=== PATIENT | male | born 1960 | race African-American/Black ===

== ENCOUNTER → 2021-08-06 | Day surgery (SDC) | payer MEDICARE ==
[~2021-08-06] VITALS: Ht 182.9 cm; Wt 84.0 kg
[~2021-08-06] MED LIST: AMLO-186 PO; IV RINGERS,LACTATED 1000ML 1,000 ML IV SCH; LIDOCAINE 2% PF 5 ML VIAL. ONE; LISI20TA18 PO; PROPOFOL 10 MG/ML (20ML) VIAL. IV ONE
[2021-08-06 13:01] VITALS: BP 143/91
--- NOTE | 2021-08-06 14:25 | PDOC4 ---
PROCEDURE Procedure Colonoscopy Indication: H/o polyps, Last 2017. Meds: per anesthesia Findings" GENNY: normal --'Scope advanced to cecum. Mucosa normal. Prep good. No tics, polyps, etc. Normal retroflex. Sid. well. IMP: H/o polyps, no recurrence. REC: Repeat exam in 5 years. F/u prn otherwise. Resume meds, diet. YANI HOBSON MD Aug 06, 2021 14:25
[2021-08-06 14:46] VITALS: BP 127/84
== END | disposition home or self-care (01) ==
LOC: SURG 12:32
PROVIDERS: ATTEND Internal Medicine Gastroenterology
DX: Z12.11 Encounter for screening for malignant neoplasm of colon (principal); K64.0 First degree hemorrhoids; K63.89 Other specified diseases of intestine; I10 Essential (primary) hypertension; E78.00 Pure hypercholesterolemia, unspecified; E66.9 Obesity, unspecified; K21.9 Gastro-esophageal reflux disease without esophagitis; M19.90 Unspecified osteoarthritis, unspecified site; Z86.010 Personal history of colon polyps; Z87.891 Personal history of nicotine dependence; Z79.899 Other long term (current) drug therapy; Z98.890 Other specified postprocedural states
CPT/HCPCS: G0105; J2704; 45378